=== PATIENT | female | born 1985 | race Caucasian/White ===

== ENCOUNTER 2016-08-26 09:00 | Day surgery (SDC) | payer BC ==
[2016-08-20 11:08] LABS: HEMATOCRIT 41.3 % (36.0-47.0); HEMOGLOBIN 13.7 g/dL (12.0-15.5); HGB HCT DIFFERENCE -0.2; MEAN CORPUSCULAR HEMOGLOBIN 27.9 pg (27.0-33.4); MEAN CORPUSCULAR HGB CONC 33.2 g/dL (32.0-36.0); MEAN CORPUSCULAR VOLUME 84 fl (80-97); RED BLOOD COUNT 4.91 10^6/uL (3.72-5.28); RED CELL DISTRIBUTION WIDTH 13.7 % (11.5-14.0); WHITE BLOOD COUNT 5.2 10^3/uL (4.0-10.5)
[~2016-08-26 09:00] MED LIST: ACETAMINOPHEN 325 MG TABLET PO PRN; CEFAZOLIN 1 GM/D5W RTU 1 GM/50 ML RTUPB IV PRN; LACTATED RINGERS 1000 ML IV PRN; LIDOCAINE 0.5% INJ-PF (5 MG/ML) 50 ML SDV SUBCUT PRN; SCOPOLAMINE HYDROBROMIDE 1.5 MG PATCH.TD72 TD PRN
[2016-08-26] MEDS ORDERED: BUPIVACAINE HCL 0.25 % INJ/PF (2.5 MG/1 ML) 30 ML VIAL ONE (12:56)
[2016-08-26] MEDS ORDERED: PROMETHAZINE HCL INJ 25 MG/1 ML VIAL IV PRN ×2 (14:10)
[2016-08-26] MEDS ORDERED: FENTANYL CITRATE INJ/PF 100 MCG/2 ML AMPUL IV PRN ×3 (14:10)
[2016-08-26] MEDS ORDERED: MORPHINE SULFATE 10 MG/ML INJ IV PRN ×2 (14:10→14:59)
[2016-08-26] MEDS ORDERED: OXYCODONE-ACETAMINOPHEN 5-325 MG TABLET PO PRN ×3 (14:10→14:59)
[2016-08-26] MEDS ORDERED: DIPHENHYDRAMINE HCL 50 MG/ML VIAL IV PRN (14:10)
[2016-08-26] MEDS ORDERED: MEPERIDINE HCL/PF INJ 25 MG/1 ML DISP.SYRIN IV PRN (14:10)
[2016-08-26] MEDS ORDERED: NORMAL SALINE 1000 ML 1,000 ML IV PRN (14:59)
[2016-08-26] MEDS ORDERED: KETOROLAC TROMETHAMINE INJ/PF 30 MG/1 ML SDV IV PRN (14:59)
[2016-08-26] MEDS ORDERED: ONDANSETRON HCL INJ/PF 4 MG/2 ML SDV IV PRN (14:59)
[2016-08-26] MEDS ORDERED: ONDANSETRON HCL INJ/PF 4 MG/2 ML SDV ONE ×2 (15:20→19:03)
[2016-08-26] MEDS: PROMETHAZINE HCL INJ 50 MG/1 ML VIAL IM ONE ×2 (16:18→20:33)
[2016-08-26] MEDS ORDERED: GLYCOPYRROLATE INJ 0.4 MG/2 ML VIAL ONE (19:03)
[2016-08-26] MEDS ORDERED: LIDOCAINE 2% INJ-PF (20 MG/ML) 10 ML AMPUL ONE (19:03)
[2016-08-26] MEDS ORDERED: METOCLOPRAMIDE HCL INJ/PF 10 MG/2 ML SDV ONE (19:03)
[2016-08-26] MEDS ORDERED: PHENYLEPHRINE HCL INJ/PF 10 MG/1 ML SDV ONE (19:03)
[2016-08-26] MEDS ORDERED: DEXAMETHASONE SOD PHOSPHATE INJ 4 MG/1 ML VIAL ONE (19:03)
[2016-08-27] MEDS ORDERED: PRENATAL VITAMIN W-O CA NO5/FE FUMARATE/FA CAPSULE PO SCH (10:00)
--- NOTE | 2016-08-28 09:16 | Operative Report ---
Operative Report DATE OF SURGERY: 08/26/16 PREOPERATIVE DIAGNOSIS: Incisional hernia POSTOPERATIVE DIAGNOSIS: Incisional hernia measuring 2.5 x 7 cm in size OPERATION: Laparoscopic incisional hernia repair with mesh SURGEON: JOSSELIN LAMA ANESTHESIA: GA TISSUE REMOVED OR ALTERED: None COMPLICATIONS: None ESTIMATED BLOOD LOSS: minimal INTRAOPERATIVE FINDINGS: Lower abdominal midline fascial defect measuring 2.5 x 7 cm in size PROCEDURE: Informed consent was obtained. Patient was brought to the operating room placed operating table in supine position. After satisfactory induction of general anesthesia patient's abdomen was prepped and draped in the usual sterile fashion. A subxiphoid midline incision was made dissection carried out to the fascia and the peritoneal cavity entered without difficulty. Kelly trocar was inserted pneumoperitoneum produced with good patient toleration. Two 5 mm trochars were placed in a left lateral abdomen two more 5 mm trochars were placed in the right lateral abdomen at the end of the case for fixation of the mesh. There was a midline fascial defect measuring 7 centimeters by 2-1/2 cm in the lower abdomen. Covidien parietex mesh was used. 15 x 10 cm mesh was used. It was affixed at 4 quadrants using trans-fascial PDS sutures. The lowest suture was at the suprapubic location taking great care to be superior to the bladder. The mesh was affixed circumferentially using an absorbable tacking device. Hemostasis appeared to be excellent. The mesh laid flat with excellent coverage. All trochars were removed under the direct vision of the laparoscope to ensure hemostasis. The Kelly trocar site fascial defect was closed with interrupted Vicryl sutures. Marcaine was injected at the incision sites. All skin incisions were closed with subcuticular interrupted Monocryl sutures. Patient tolerated procedure well with no apparent complications and was taken to the recovery area in stable condition.
--- NOTE | 2016-08-28 09:18 | PDOC PROGRESS REPORT ---
Subjective Progress Note for:: 08/28/16 Subjective:: feels well. voiding well Physical Exam Vital Signs: Temp Pulse Resp BP Pulse Ox 98.6 F 66 16 94/61 L 97 08/28/16 08:53 08/28/16 08:53 08/28/16 08:53 08/28/16 08:53 08/28/16 08:53 Intake & Output 08/27/16 08/28/16 08/29/16 06:59 06:59 06:59 Intake Total 3100 400 Output Total 1115 550 Balance 1984 -150 Weight 44 kg 45 kg General appearance: PRESENT: no acute distress, cooperative Respiratory exam: PRESENT: clear to auscultation reed Cardiovascular exam: PRESENT: RRR GI/Abdominal exam: PRESENT: other - soft, nd, ntp. no erythema Results Laboratory Results: 08/20/16 10:19 Assessment & Plan - Diagnosis (1) Incisional hernia Is this a current diagnosis for this admission?: YesPlan: s/p lap incisional hernia repair with mesh. urinary retention resolved.d/c home.
[2016-08-28 10:24] VITALS: BP 104/64
--- NOTE | 2016-08-28 10:37 | DISCHARGE SUMMARY E ---
Discharge Summary NAME: DARREN JOSEPH : 1985 AGE: 31Y ADMITTED: 08/26/2016 DISCHARGED: 08/28/2016 DISCHARGE DIAGNOSIS: Incisional hernia. SECONDARY DIAGNOSIS: Urinary retention. PROCEDURE PERFORMED UNDER HOSPITALIZATION: Laparoscopic incisional hernia repair with mesh performed by Dr. Bishop Lama on August 26, 2016. HOSPITAL COURSE: The patient underwent the above mentioned procedure. She was noted postoperatively with some urinary frequency but no dysuria. She had a Phillips catheter placed post voiding with 500 mL residual, therefore, the Phillips catheter was kept in over the day. It was removed the following day and she was voiding well at the time of discharge. Her pain was under excellent control. She was tolerating a diet. Her abdominal exam looked. Patient is now being discharged to home in good condition. She will follow up with me in 2 weeks. She is encouraged to stay active at home but avoid strenuous activity. Discharge medication was Percocet 1 p.o. q.4 hours p.r.n. pain. She may shower. DICTATING PHYSICIAN: BISHOP LAMA M.D. [id number] PHY#: [id number] ID: [id number] JOB#: [id number] ACCT: [id number] cc:BISHOP LAMA M.D. >
== END 2016-08-28 09:40 | disposition home or self-care (01) ==
LOC: OROUT 09:00 → INOR 09:00 → UNDOADMIN 09:00 → EDSTATUS 13:30 → INOR 17:11 → 2N 17:11 → OROUT 08-28 09:40 → UNDODISIN 08-28 09:40
PROVIDERS: ATTEND Surgery
PROC: 0WUF4JZ Supplement Abdominal Wall with Synthetic Substitute, Percutaneous Endoscopic Approach (ICD-10-PCS; principal; 2016-08-26 13:30)
DX: K43.2 Incisional hernia without obstruction or gangrene (principal); R33.9 Retention of urine, unspecified
CPT/HCPCS: 36415; 85027; 81025; 49654; C1781; J0690; J1100; J2765; J2370; J2550; J2405; J3490; 832

== ENCOUNTER → 2016-12-26 | Outpatient (CLI) | payer BC ==
[2016-12-26 14:02] LABS: ABSOLUTE BASOPHILS # (AUTO) 0.1 10^3/uL (0.0-0.2); ABSOLUTE EOSINOPHILS # (AUTO) 0.1 10^3/uL (0.0-0.6); ABSOLUTE LYMPHOCYTES (AUTO) 2.4 10^3/uL (0.5-4.7); ABSOLUTE MONOCYTES (AUTO) 0.7 10^3/uL (0.1-1.4); ABSOLUTE NEUT (AUTO) 4.4 10^3/uL (1.7-8.2); BASOPHILS % (AUTO) 0.8 % (0-2); EOSINOPHILS % (AUTO) 1.4 % (0-6); HEMATOCRIT 39.8 % (36.0-47.0); HEMOGLOBIN 13.4 g/dL (12.0-15.5); HGB HCT DIFFERENCE 0.4; LYMPHOCYTES % (AUTO) 31.1 % (13-45); MEAN CORPUSCULAR HEMOGLOBIN 27.6 pg (27.0-33.4); MEAN CORPUSCULAR HGB CONC 33.6 g/dL (32.0-36.0); MEAN CORPUSCULAR VOLUME 82 fl (80-97); MONOCYTES % (AUTO) 9.1 % (3-13); RED BLOOD COUNT 4.84 10^6/uL (3.72-5.28); RED CELL DISTRIBUTION WIDTH 13.5 % (11.5-14.0); SEGMENTED NEUTROPHILS % (AUTO) 57.6 % (42-78); WHITE BLOOD COUNT 7.6 10^3/uL (4.0-10.5)
--- NOTE | 2016-12-26 14:02 | RADIOLOGY REPORT (SQ) ---
EXAM DESCRIPTION: CHEST PA/LAT COMPLETED DATE/TIME: 12/26/2016 1:08 pm REASON FOR STUDY: WEIGHT LOSS (R63.4) COMPARISON: None. EXAM PARAMETERS: NUMBER OF VIEWS: two views TECHNIQUE: Digital Frontal and Lateral radiographic views of the chest acquired. RADIATION DOSE: NA LIMITATIONS: none FINDINGS: LUNGS AND PLEURA: No opacities, masses or pneumothorax. No pleural effusion. MEDIASTINUM AND HILAR STRUCTURES: No masses or contour abnormalities. HEART AND VASCULAR STRUCTURES: Heart normal size. No evidence for failure. BONES: No acute findings. HARDWARE: None in the chest. OTHER: No other significant finding. IMPRESSION: NO SIGNIFICANT RADIOGRAPHIC FINDING IN THE CHEST. TECHNICAL DOCUMENTATION: JOB ID: [id number] [employer]- All Rights Reserved
[2016-12-26 14:20] LABS: ALANINE AMINOTRANSFERASE 26 U/L (9-52); ALBUMIN 4.3 g/dL (3.5-5.0); ALKALINE PHOSPHATASE 79 U/L (38-126); ANION GAP 10 (5-19); ASPARTATE AMINO TRANSFERASE 24 U/L (14-36); BILIRUBIN,DIRECT 0.3 mg/dL (0.0-0.4); BILIRUBIN,TOTAL 0.4 mg/dL (0.2-1.3); BLOOD UREA NITROGEN 14 mg/dL (7-20); CALCIUM 9.6 mg/dL (8.4-10.2); CARBON DIOXIDE 25 mmol/L (22-30); CHLORIDE 103 mmol/L (98-107); CREATININE RESULT 0.66 mg/dL (0.52-1.25); GLUCOSE 79 mg/dL (75-110); POTASSIUM 4.3 mmol/L (3.6-5.0); SODIUM 138.4 mmol/L (137-145); TOTAL PROTEIN 7.2 g/dL (6.3-8.2)
[2016-12-26 14:58] LABS: ADD HIVPANEL? NO; HIV (1 AND 2) ANTIBODY NEGATIVE (NEGATIVE)
[2016-12-26 15:07] LABS: THYROID STIMULATING HORMONE 1.41 uIU/mL (0.47-4.68)
[2016-12-28 07:38] LABS: HEPATITIS C VIRUS AB 0.3 s/co ratio (0.0-0.9)
[2016-12-29 07:22] LABS: INSULIN-LIKE GROWTH FACTOR I 189 ng/mL (73-243)
[2016-12-29 13:38] LABS: VITAMIN D 25-HYDROXY 33.2 ng/mL (30.0-100.0)
[2016-12-29 14:55] LABS: C-PEPTIDE 2.6 ng/mL (1.1-4.4)
[2016-12-30 12:41] LABS: INSULIN 7.5 uIU/mL (2.6-24.9)
== END ==
LOC: OD 11:44
PROVIDERS: ATTEND Student in an Organized Health Care Education/Training Program
DX: R63.4 Abnormal weight loss (principal)
CPT/HCPCS: 36415; 71020; 80053; 82306; 82607; 83525; 84305; 84439; 84443; 84681; 85025; 86592; 86701; 86803; 86804

== ENCOUNTER → 2017-01-09 | Outpatient (CLI) | payer BC | LOC: OD 10:43 | PROVIDERS: ATTEND Student in an Organized Health Care Education/Training Program | DX: R53.82 Chronic fatigue, unspecified (principal); R63.4 Abnormal weight loss; E16.2 Hypoglycemia, unspecified | CPT/HCPCS: 36415; 83519 ==

== ENCOUNTER → 2019-04-19 | Outpatient (CLI) | payer BC ==
--- NOTE | 2019-04-19 11:53 | WOMENS IMAGING REPORT ---
EXAM DESCRIPTION: 3D DIAG MAMMO BILAT NO CHG; EMPLOYEE MAMMO; U/S BREAST UNILAT LIMITED COMPLETED DATE/TIME: 04/19/2019 10:58 am; 04/19/2019 11:32 am REASON FOR STUDY: N63.20 BILAT DX; N63.20 LEFT BREAST N63.20 UNSPECIFIED LUMP IN THE LEFT BREAST, U NSPECIFIED QUAD COMPARISON: None. EXAM PARAMETERS: Standard craniocaudal and mediolateral oblique views of each breast recorded using digital acquisition and breast tomosynthesis. Additional "push-back" craniocaudal and mediolateral o blique images acquired. Additional implant displaced true lateral and spot compression MLO and CC images acquired with tomosy nthesis. Read with the assistance of CAD: .[employer] Version 9.2 LIMITATIONS: None. FINDINGS: IMPLANTS: Bilateral subpectoral implants. RIGHT BREAST MASSES: No suspicious masses. CALCIFICATIONS: No new or suspicious calcifications. ARCHITECTURAL DISTORTION: None. ASYMMETRY: None noted. OTHER: No other significant findings. LEFT BREAST MASSES: No suspicious masses. CALCIFICATIONS: No new or suspicious calcifications. ARCHITECTURAL DISTORTION: None. ASYMMETRY: None noted. OTHER: No other significant finding. BREAST ULTRASOUND: TECHNIQUE: Static and dynamic grayscale images acquired of the right breast in the specific areas of clinical/mammographic concern. Selected color Doppler images recorded. ELASTOGRAPHY PERFORMED: No. LIMITATIONS: None. FINDINGS: MASS: In the 12 o'clock location there is an anechoic 6 x 8 mm cyst. Oriented parallel to the skin. No internal echoes. No distal shadowing. In the 2 o'clock location there is a 5 x 6 mm lymph node. Smooth margins. Oriented parallel to the skin. Fatty hilum. No distal shadowing. No solid mass identified. Normal glandular tissue. ELASTOGRAPHY CHARACTERISTICS: Not applicable. OTHER: No other significant finding. IMPRESSION: NO WORRISOME MAMMOGRAPHIC FINDINGS IN EITHER BREAST. THERE IS A SMALL CYST AND A SMALL BENIGN LYMPH NODE IDENTIFIED IN THE LEFT BREAST ON ULTRASOUND. NO SOLID MASSES OR SUSPICIOUS SONOGRA PHIC FINDINGS. BREAST DENSITY: c. The breasts are heterogeneously dense, which may obscure small masses. BIRAD: ASSESSMENT: 2 Benign findings. RECOMMENDATION: RECOMMENDED FOLLOW UP: Birads 1 or 2: The patient should resume routine screening . SPECIFIC INTERVENTION/IMAGING/CONSULTATION RECOMMENDED:No additional intervention/ imaging/consultati on needed at this time. COMMUNICATION:The imaging findings were not discussed with the patient. Her referring provider has be en notified of the findings. COMMENT: The patient has been notified of the results by letter per [place] requirements. Additional no tification policies are in place for contacting patient with suspicious or incomplete findings. Quality ID #[id number]: The [employer] recommends an annual screening mammogram for women aged 40 years or over. This facility utilizes a reminder system to ensure that all patients receive reminder letters, and/or direct phone calls for appointments. This includes reminders for routine scr eening mammograms, diagnostic mammograms, or other Breast Imaging Interventions when appropriate. Th is patient will be placed in the appropriate reminder system. TECHNICAL DOCUMENTATION: FINDING NUMBER: (1) ASSESSMENT: (1) JOB ID: [id number] [employer]- All Rights Reserved Reading location - IP/workstation name: [email or web address]
== END ==
LOC: WI 10:15
PROVIDERS: ATTEND Specialist
DX: N63.20 Unspecified lump in the left breast, unspecified quadrant (principal); Z98.82 Breast implant status
CPT/HCPCS: 76642

== ENCOUNTER → 2020-05-04 | Outpatient (CLI) | payer BC ==
[~2020-05-04] MED LIST changes: -ACETAMINOPHEN 325 MG TABLET PO PRN; -CEFAZOLIN 1 GM/D5W RTU 1 GM/50 ML RTUPB IV PRN; +COVID-19 VACCINE (PFIZER)/PF 30 MCG/0.3 ML VIAL IM ONE; +EPINEPHRINE INJ/PF 1 MG/1 ML AMPULE IM PRN; -LACTATED RINGERS 1000 ML IV PRN; -LIDOCAINE 0.5% INJ-PF (5 MG/ML) 50 ML SDV SUBCUT PRN; -SCOPOLAMINE HYDROBROMIDE 1.5 MG PATCH.TD72 TD PRN
== END ==
LOC: EMPHEALTH 16:41
PROVIDERS: ATTEND Internal Medicine
DX: Z23 Encounter for immunization (principal)
CPT/HCPCS: 91300